=== PATIENT | female | born 1995 | race Two or more races ===

== ENCOUNTER 2022-10-10 14:43 | Outpatient (CLI) | payer OTHER ==
[~2022-10-10 14:43] MED LIST: BENADRYL25 MG
== END 2022-10-10 17:47 | disposition home or self-care (01) ==
LOC: PRENATAL 14:43
PROVIDERS: ATTEND Obstetrics & Gynecology Maternal & Fetal Medicine
DX: O26.849 Uterine size-date discrepancy, unspecified trimester (principal); O36.4XX0 Maternal care for intrauterine death, not applicable or unspecified; O30.90 Multiple gestation, unspecified, unspecified trimester; Z3A.15 15 weeks gestation of pregnancy

== ENCOUNTER 2022-10-11 18:41 | Emergency (ER) | payer OTHER ==
[~2022-10-11] VITALS: Ht 157.5 cm; Wt 73.5 kg
== END 2022-10-11 22:33 | disposition home or self-care (01) ==
LOC: ER 18:41
DX: O02.1 Missed abortion (principal)